=== PATIENT | female | born 1960 ===

== ENCOUNTER → 2023-11-20 | Outpatient (REF) | payer MEDICARE ==
[~2023-11-20] MED LIST: REGADENOSON 0.4 MG/5 ML SYR IV ONE
== END ==
LOC: NM 09:45
PROVIDERS: ATTEND Internal Medicine Cardiovascular Disease
DX: Z01.818 Encounter for other preprocedural examination (principal); R06.02 Shortness of breath; I10 Essential (primary) hypertension; R26.9 Unspecified abnormalities of gait and mobility
CPT/HCPCS: 78452; 93017; A9502; J2785